=== PATIENT | male | born 1970 | race Caucasian/White ===

== ENCOUNTER 2018-06-23 20:54 | Emergency (ER) | payer OTHER ==
[~2018-06-23 20:54] MED LIST: CETI10CA8 PO; IBU600 PO; IBU800 PO; IBUP-56 PO; IBUPROFEN; KET10 PO; LISI-1 PO; LISI-347 PO; LOR5 PO; LOR5/325 PO; MET10 PO; MULT-885 PO; MULT1CAP41 PO; NAPR375T44 PO; PER PO
--- NOTE | 2018-06-23 20:59 | ER Report ---
History and Physical Time Seen By MD: 20:59 HPI/ROS CHIEF COMPLAINT: Near syncope, headache, elevated blood pressure HISTORY OF PRESENT ILLNESS: 47-year-old male brought in by his who was a nurse and are hospital. He was having grossly elevated blood pressure, headache and feeling out of sorts. Patient reports feeling ill for several days. His difficulty quantitating his symptoms. Patient denies fever or chills. Patient denies photophobia or stiff neck. Patient notes no diaphoresis, but notes some nausea. He notes no shortness of breath or chest pain. REVIEW OF SYSTEMS: Respiratory: No cough, no dyspnea. Cardiovascular: No chest pain, no palpitations. Gastrointestinal: No vomiting, no abdominal pain. Musculoskeletal: No back pain. Allergies: Uncoded Allergies: HAYFEVER (Allergy, Mild, UNKNOWN, 10/20/11) Home Meds Discontinued Reported Medications Multivitamin (DAILY VITAMIN) 1 Each Tablet, 1 EACH PO DAILY 12/30/12 Ibuprofen (IBUPROFEN) 200 Mg Tablet, 2 TAB PO Q6H PRN 12/30/12 Naproxen (NAPROXEN) 375 Mg Tablet, 375 MG PO PRN, TAB 12/30/12 Reviewed Nurses Notes: Yes Old Medical Records Reviewed: Yes Hx Smoking: No Exposure to Second Hand Smoke?: No Hx Substance Use Disorder: No Hx Alcohol Use: Yes (6 TO 12 BEERS PER WEEK) Constitutional Vital Sign - Last 24 Hours 06/23/18 06/23/18 06/23/18 06/23/18 21:00 21:09 21:24 21:39 Temp 98.1 Pulse 83 79 78 79 Resp 16 10 14 16 B/P (MAP) 151/110 Pulse Ox 92 91 92 91 O2 Delivery Room Air 06/23/18 06/23/18 06/23/18 06/23/18 21:41 21:54 22:00 22:09 Pulse 87 79 Resp 15 30 B/P (MAP) 135/94 (108) 126/95 (105) Pulse Ox 93 92 06/23/18 06/23/18 22:24 22:25 Pulse 79 Resp 27 B/P (MAP) 127/87 (100) Pulse Ox 92 Physical Exam General Appearance: patient is alert, has no immediate need for airway protection and no current signs of toxicity. Vital signs stable, afebrile, pulse ox normal, blood pressure only mildly elevated by our measurement HEENT: Pupils equal and round no injection. TMs normal, oropharynx without redness or exudate, mucous membranes are moist Respiratory: Chest is non tender, lungs are clear to auscultation. No chest wall tenderness Cardiac: regular rate and rhythm, no murmur Gastrointestinal: Abdomen is soft and non tender, no masses, bowel sounds normal. Musculoskeletal: Neck: Neck is supple and non tender. Extremities have full range of motion and are non tender. Skin: No rashes or lesions. DIFFERENTIAL DIAGNOSIS: After history and physical exam differential diagnosis was considered for headache including but not limited to subarachnoid hemorrhage, migraine headache, tension headache and infectious causes such as meningitis, pharyngitis and sinusitis. Additionally,syncope including but not limited to vasovagal syncope, arrhythmia, dehydration, and blood loss. Medical Decision Making Data Points Result Diagram: 06/23/18210806/23/182108 Laboratory Hematology Test 06/23/18 21:09 Red Blood Count 5.20 M/uL (4.00-5.60) Mean Corpuscular Volume 91.4 fL (80.0-96.0) Mean Corpuscular Hemoglobin 30.8 pg (26.0-33.0) Mean Corpuscular Hemoglobin Concent 33.7 g/dL (32.0-36.0) Red Cell Distribution Width 13.1 % (11.5-14.5) Mean Platelet Volume 7.6 fL (7.2-11.1) Neutrophils (%) (Auto) 53.7 % (39.4-72.5) Lymphocytes (%) (Auto) 34.1 % (17.6-49.6) Monocytes (%) (Auto) 8.5 % (4.1-12.4) Eosinophils (%) (Auto) 2.6 % (0.4-6.7) Basophils (%) (Auto) 1.1 % (0.3-1.4) Nucleated RBC Relative Count (auto) 0.1 /100WBC Neutrophils # (Auto) 4.2 K/uL (2.0-7.4) Lymphocytes # (Auto) 2.7 K/uL (1.3-3.6) Monocytes # (Auto) 0.7 K/uL (0.3-1.0) Eosinophils # (Auto) 0.2 K/uL (0.0-0.5) Basophils # (Auto) 0.1 K/uL (0.0-0.1) Nucleated RBC Absolute Count (auto) 0.00 K/uL Sodium Level 140 mmol/L (137-145) Potassium Level 4.0 mmol/L (3.5-5.0) Chloride Level 112 mmol/L (98-107) Carbon Dioxide Level 21 mmol/L (22-30) Blood Urea Nitrogen 16 mg/dl (9-21) Creatinine 1.40 mg/dl (0.66-1.25) Glomerular Filtration Rate Calc 54.6 Random Glucose 91 mg/dl (75-110) Calcium Level 9.0 mg/dl (8.4-10.2) Total Bilirubin 0.5 mg/dl (0.2-1.3) Aspartate Amino Transf (AST/SGOT) 27 U/L (0-35) Alanine Aminotransferase (ALT/SGPT) 52 U/L (0-56) Alkaline Phosphatase 64 U/L (0-126) Troponin I < 0.012 ng/ml Total Protein 7.3 g/dl (6.3-8.2) Albumin 4.4 g/dl (3.5-5.0) Chemistry Test 06/23/18 21:09 White Blood Count 7.8 k/uL (4.5-11.0) Red Blood Count 5.20 M/uL (4.00-5.60) Hemoglobin 16.0 g/dL (14.0-18.0) Hematocrit 47.5 % (42.0-52.0) Mean Corpuscular Volume 91.4 fL (80.0-96.0) Mean Corpuscular Hemoglobin 30.8 pg (26.0-33.0) Mean Corpuscular Hemoglobin Concent 33.7 g/dL (32.0-36.0) Red Cell Distribution Width 13.1 % (11.5-14.5) Platelet Count 244 K/uL (150-450) Mean Platelet Volume 7.6 fL (7.2-11.1) Neutrophils (%) (Auto) 53.7 % (39.4-72.5) Lymphocytes (%) (Auto) 34.1 % (17.6-49.6) Monocytes (%) (Auto) 8.5 % (4.1-12.4) Eosinophils (%) (Auto) 2.6 % (0.4-6.7) Basophils (%) (Auto) 1.1 % (0.3-1.4) Nucleated RBC Relative Count (auto) 0.1 /100WBC Neutrophils # (Auto) 4.2 K/uL (2.0-7.4) Lymphocytes # (Auto) 2.7 K/uL (1.3-3.6) Monocytes # (Auto) 0.7 K/uL (0.3-1.0) Eosinophils # (Auto) 0.2 K/uL (0.0-0.5) Basophils # (Auto) 0.1 K/uL (0.0-0.1) Nucleated RBC Absolute Count (auto) 0.00 K/uL Glomerular Filtration Rate Calc 54.6 Calcium Level 9.0 mg/dl (8.4-10.2) Total Bilirubin 0.5 mg/dl (0.2-1.3) Aspartate Amino Transf (AST/SGOT) 27 U/L (0-35) Alanine Aminotransferase (ALT/SGPT) 52 U/L (0-56) Alkaline Phosphatase 64 U/L (0-126) Troponin I < 0.012 ng/ml Total Protein 7.3 g/dl (6.3-8.2) Albumin 4.4 g/dl (3.5-5.0) EKG/Imaging EKG Interpretation 12 lead EK Rhythm: normal sinus rhythm [place]: normal QRS: Right bundle branch block ST segments: normal, comparison to previous EKG dated 01/04/13, no significant change Imaging Results: CT scan of the head without contrast was obtained. The results of the study are no acute findings. The study was read by the radiologist. I viewed the images myself on the PACS system. ED Course/Re-evaluation Clinical Indication for ER IV: IV Access ED Course Patient was admitted to an examination room. H&P was done. The differential diagnoses was considered. On clinical examination. Patient has a nonfocal neurologic examination. He had recorded elevated blood pressure readings at home. His blood pressure is only mildly elevated at 153/100 here. She reports near syncopal symptoms. He is treated with a liter of normal saline bolus IV. Diagnostic studies are ordered. His EKG is unremarkable and shows a right bundle branch block pattern, unchanged from previous EKG. His laboratory studies were unremarkable. A CAT scan of the head was performed which showed no acute findings. Patient and his are reassured. They're advised to follow- up with primary care physician symptoms persist for further evaluation. Decision to Disposition Date: Jun 23, 2018 Decision to Disposition Time: 22:11 Depart Departure Latest Vital Signs Vital Signs Date Time Temp Pulse Resp B/P (MAP) Pulse Ox O2 Delivery O2 Flow Rate FiO2 06/23/18 22:25 127/87 (100) 06/23/18 22:24 79 27 92 06/23/18 21:00 98.1 Room Air Impression: Primary Impression: Elevated blood pressure reading Additional Impressions: Dizziness Headache Condition: Improved Disposition: HOME OR SELF-CARE Referrals: HAYDE PORTILLO DO (PCP) Patient Instructions: Dizziness (ED) Additional Instructions: Take meclizine 25 mg 3 times daily as needed for dizziness Take ibuprofen 200 mg 2-3 tablets 3 times a day as needed for pain Follow-up with her primary care if unimproved in 3-5 days Problem Qualifiers Additional Impressions: Headache Headache type: unspecified Headache chronicity pattern: acute headache Intractability: not intractable Qualified Codes: R51 - Headache CECILLE IVY DO Jun 23, 2018 20:59
[2018-06-23] MEDS ORDERED: NS(*) 0.9% 1000 ML BAG 1,000 ML IV ONE (21:07)
[2018-06-23 21:18] LABS: PLATELET COUNT, AUTOMATED 244 K/uL (150-450)
[2018-06-23] MEDS ORDERED: MECLIZINE HCL 25 MG TAB PO ONE (21:50)
--- NOTE | 2018-06-23 21:57 | RADIOLOGY IMAGING REPORT ---
FACILITY: [facility] PATIENT NAME: Freddy Pagan : 1970 MR: [id number] V: [id number] EXAM DATE: ORDERING PHYSICIAN: CECILLE IVY TECHNOLOGIST: Location: [facility] - [place], [place] Patient: Freddy Pagan : 1970 Visit/Account:[id number] Date of Sevice: 06/23/2018 EXAMINATION: CT HEAD WITHOUT CONTRAST COMPARISON: None available HISTORY: Headache. Elevated blood pressure. PROCEDURE: Noncontrast CT from the vertex through the skull base. One of the following dose optimizat ion techniques was utilized in the performance of this exam: Automated exposure control; adjustment o f the mA and/or kV according to the patient's size; or use of an iterative reconstruction technique. Specific details can be referenced in the facility's radiology CT exam operational policy. FINDINGS: Brain volume: Age-appropriate. Hemorrhage/extra-axial fluid: None. Mass effect/midline shift/edema: None. Ischemia: Cardoso-white differentiation is preserved. Ventricles and basal cisterns: Within normal limits. Posterior fossa: Negative. Vessels: Negative. Calvarium, skull base, and scalp: Negative. Visualized sinuses and orbits: Maxillary sinus mild mucosal inflammation. No sinus fluid levels. Orbi ts are unremarkable. IMPRESSION: Maxillary sinus mild mucosal inflammation. Otherwise negative head CT. Report Dictated By: Chivo Good MD at 06/23/2018 9:46 PM Report E-Signed By: Chivo Good MD at 06/23/2018 9:53 PM WSN:[id number]
[2018-06-23 22:25] VITALS: BP 127/87
--- NOTE | 2018-06-23 22:46 | EKG ---
FACILITY: [facility] - [place] PATIENT NAME: PABLITO PEARCE : [id number] MR: [id number] V: [id number] EXAM DATE: ORDERING PHYSICIAN: CECILLE IVY TECHNOLOGIST: KHADRA Test Reason : DIZZY, HYPERTENSION Blood Pressure : / mmHG Vent. Rate : 081 BPM Atrial Rate : 081 BPM P-R Int : 168 ms QRS Dur : 138 ms QT Int : 398 ms P-R-T Axes : 024 032 034 degrees QTc Int : 462 ms Poor data quality, interpretation may be adversely affected Sinus rhythm with fusion complexes Right bundle branch block Abnormal ECG When compared with ECG of 04-JAN-2013 19:24, fusion complexes are now present Confirmed by DONALDO BAINS ([id number]) on 06/23/2018 10:55:54 PM Referred By: Confirmed By:DONALDO BAINS
== END 2018-06-23 22:30 | disposition home or self-care (01) ==
LOC: ER 21:01
DX: R03.0 Elevated blood-pressure reading, without diagnosis of hypertension (principal); R42 Dizziness and giddiness; R51 Headache
CPT/HCPCS: 70450; 84484; 85025; 93005; 99284; J7030; J8597; 82040; 82247; 82310; 82374; 82435; 82565; 82947; 84075; 84132; 84155; 84295; 84450; 84460; 84520